=== PATIENT | male | born 1965 | race Two or more races ===

== ENCOUNTER 2017-11-16 11:51 | Inpatient (IN) | payer OTHER ==
[~2017-11-16] VITALS: Ht 172.7 cm; Wt 74.8 kg
[2017-11-16 11:56] VITALS: Ht 172.7 cm; Wt 74.8 kg
[2017-11-16 13:10] LABS: BASOPHIL % 0.4 % (0-2); PLATELET COUNT 315 x10^3mcL (130-400); RED CELL DISTRIBUTION WIDTH 13.6 % (11.5-14.5)
[2017-11-16 13:15] LABS: CALCIUM 8.3 mg/dL (8.5-10.1); CARBON DIOXIDE 23.4 mmol/L (21-32); CHLORIDE SERUM 98 mmol/L (98-107); GFR1 > 60 mL/min; GLUCOSE SERUM 109 mg/dL (74-106); POTASSIUM SERUM 3.6 mmol/L (3.5-5.1); SODIUM SERUM 133 mmol/L (136-145)
[2017-11-16 15:10] LABS: BASOPHIL % 0.2 % (0-2); PLATELET COUNT 305 x10^3mcL (130-400); RED CELL DISTRIBUTION WIDTH 13.1 % (11.5-14.5)
[2017-11-16 16:34] LABS: CHOLESTEROL/HDL RATIO 4.7; MAGNESIUM 1.9 mg/dL (1.8-2.4); PHOSPHOROUS 3.3 mg/dL (2.5-4.9)
[2017-11-16 17:20] VITALS: BP 144/84
[2017-11-16 18:17] LABS: UA SPECIFIC GRAVITY 1.015 (1.005-1.035); microscopic required? YES; urine erythrocyte NEGATIVE (NEGATIVE)
[2017-11-16 18:33] LABS: AMPHETAMINE QUAL UR NONE DETECTED (See below)
[2017-11-16 20:58] VITALS: BP 121/76
[2017-11-16 21:06] LABS: PLATELET COUNT 327 x10^3mcL (130-400); RED CELL DISTRIBUTION WIDTH 13.4 % (11.5-14.5)
[2017-11-16 21:34] LABS: BAND NEUTROPHIL 0 % (0-10); BASOPHIL 0 % (0-2); MONOCYTE 6 % (0-7); SEGMENTED NEUTROPHILS 80 % (37-75); rbc morphology (normal/abnorm) NORMAL (NORMAL)
[2017-11-17 05:26] VITALS: BP 101/58
[2017-11-17 06:56] LABS: BASOPHIL % 0.4 % (0-2); PLATELET COUNT 343 x10^3mcL (130-400); RED CELL DISTRIBUTION WIDTH 13.7 % (11.5-14.5)
[2017-11-17 07:16] LABS: CALCIUM 8.7 mg/dL (8.5-10.1); CARBON DIOXIDE 25.7 mmol/L (21-32); CHLORIDE SERUM 107 mmol/L (98-107); CREATININE SERUM 0.8 mg/dL (0.7-1.3); GFR1 > 60 mL/min; GLUCOSE SERUM 93 mg/dL (74-106); MAGNESIUM 2.3 mg/dL (1.8-2.4); PHOSPHOROUS 3.2 mg/dL (2.5-4.9); POTASSIUM SERUM 4.1 mmol/L (3.5-5.1); SODIUM SERUM 141 mmol/L (136-145)
[2017-11-17 09:51] VITALS: BP 104/60
[2017-11-17 17:38] VITALS: BP 105/71
[2017-11-17 20:42] VITALS: BP 111/65
[2017-11-18 05:58] VITALS: BP 98/62
[2017-11-18 06:22] LABS: BASOPHIL % 0.4 % (0-2); PLATELET COUNT 305 x10^3mcL (130-400); RED CELL DISTRIBUTION WIDTH 13.5 % (11.5-14.5)
[2017-11-18 06:25] LABS: CALCIUM 8.3 mg/dL (8.5-10.1); CARBON DIOXIDE 27.1 mmol/L (21-32); CHLORIDE SERUM 106 mmol/L (98-107); CREATININE SERUM 0.8 mg/dL (0.7-1.3); GFR1 > 60 mL/min; GLUCOSE SERUM 88 mg/dL (74-106); SODIUM SERUM 139 mmol/L (136-145)
[2017-11-18 09:20] VITALS: BP 109/72
[2017-11-18] MEDS ORDERED: PROTONIX40 MG/Pac1 PO (11:47)
[2017-11-18] MEDS ORDERED: FER300 PO (11:47)
[2017-11-18 12:30] VITALS: BP 121/68
[2017-11-18 16:10] VITALS: BP 121/68
[2017-11-18 16:58] VITALS: BP 118/72
== END 2017-11-18 17:09 | disposition short-term general hospital (02) | DRG 254 ==
LOC: ED → DU 15:39 → MU 11-18 11:53
PROVIDERS: Emergency Medicine; Internal Medicine; Internal Medicine Gastroenterology
PROC: 0DB68ZX Excision of Stomach, Via Natural or Artificial Opening Endoscopic, Diagnostic (ICD-10-PCS; principal; 2017-11-17 11:30)
PROC: 0DBP8ZX Excision of Rectum, Via Natural or Artificial Opening Endoscopic, Diagnostic (ICD-10-PCS; 2017-11-17 11:30)
DX: K62.9 Disease of anus and rectum, unspecified (principal); E87.1 Hypo-osmolality and hyponatremia; K62.1 Rectal polyp; K22.10 Ulcer of esophagus without bleeding; K22.2 Esophageal obstruction; K44.9 Diaphragmatic hernia without obstruction or gangrene; F20.9 Schizophrenia, unspecified; D50.0 Iron deficiency anemia secondary to blood loss (chronic); E86.0 Dehydration; D64.9 Anemia, unspecified; G89.29 Other chronic pain; M51.26 Other intervertebral disc displacement, lumbar region; Z87.891 Personal history of nicotine dependence; Z68.25 Body mass index [BMI] 25.0-25.9, adult; Z80.7 Family history of other malignant neoplasms of lymphoid, hematopoietic and related tissues
CPT/HCPCS: 43235; 45378; 83880; J1200; J1610; J2250; J2310; J3010; J3490; J7030; Q0092; Q9966; Q9967

== ENCOUNTER 2018-05-20 19:34 | Emergency (ER) | payer OTHER ==
[~2018-05-20] VITALS: Ht 172.7 cm; Wt 61.7 kg
[~2018-05-20 19:34] MED LIST: FER300 PO; PROTONIX40 MG/Pac1 PO
[2018-05-20 20:37] VITALS: BP 116/91; Ht 172.7 cm; Wt 61.7 kg
== END 2018-05-20 21:25 | disposition home or self-care (01) ==
LOC: ED 19:34
DX: G89.18 Other acute postprocedural pain (principal); K62.89 Other specified diseases of anus and rectum; Z48.00 Encounter for change or removal of nonsurgical wound dressing; Z85.038 Personal history of other malignant neoplasm of large intestine
CPT/HCPCS: J2270

== ENCOUNTER 2018-07-28 16:07 | Emergency (ER) | payer OTHER ==
[~2018-07-28] VITALS: Ht 172.7 cm; Wt 72.6 kg
[2018-07-28 16:12] VITALS: Ht 172.7 cm; Wt 72.6 kg
[2018-07-28 18:40] VITALS: BP 132/74
== END 2018-07-28 18:40 | disposition home or self-care (01) ==
LOC: ED 16:07
DX: Z43.3 Encounter for attention to colostomy (principal); R10.32 Left lower quadrant pain; Z85.038 Personal history of other malignant neoplasm of large intestine; Z88.8 Allergy status to other drugs, medicaments and biological substances; Z91.048 Other nonmedicinal substance allergy status
CPT/HCPCS: A4371

== ENCOUNTER 2018-11-11 14:22 | Emergency (ER) | payer OTHER ==
[~2018-11-11] VITALS: Ht 172.7 cm; Wt 75.8 kg
[2018-11-11 15:03] VITALS: Ht 172.7 cm; Wt 75.8 kg
[2018-11-11 18:22] VITALS: BP 123/79
== END 2018-11-11 18:22 | disposition home or self-care (01) ==
LOC: ED 14:22
DX: T81.31XA Disruption of external operation (surgical) wound, not elsewhere classified, initial encounter (principal); Z85.038 Personal history of other malignant neoplasm of large intestine; Z98.890 Other specified postprocedural states; Z88.8 Allergy status to other drugs, medicaments and biological substances

== ENCOUNTER 2019-02-07 18:49 | Emergency (ER) | payer OTHER ==
[~2019-02-07] VITALS: Ht 172.7 cm; Wt 78.0 kg
[2019-02-07 18:59] VITALS: Ht 172.7 cm; Wt 78.0 kg
[2019-02-07 20:50] VITALS: BP 126/85
== END 2019-02-07 20:50 | disposition home or self-care (01) ==
LOC: ED 18:49
DX: S80.02XA Contusion of left knee, initial encounter (principal); Z85.038 Personal history of other malignant neoplasm of large intestine; Z88.8 Allergy status to other drugs, medicaments and biological substances; Z91.09 Other allergy status, other than to drugs and biological substances; V22.0XXA Motorcycle driver injured in collision with two- or three-wheeled motor vehicle in nontraffic accident, initial encounter; Y93.55 Activity, bike riding; Y92.488 Other paved roadways as the place of occurrence of the external cause; Y99.8 Other external cause status

== ENCOUNTER 2019-04-19 17:42 | Emergency (ER) | payer OTHER ==
[~2019-04-19] VITALS: Ht 172.7 cm; Wt 78.9 kg
[2019-04-19 18:05] VITALS: Ht 172.7 cm; Wt 78.9 kg
[2019-04-19 19:44] VITALS: BP 122/73
== END 2019-04-19 19:44 | disposition home or self-care (01) ==
LOC: ED 17:42
DX: K29.70 Gastritis, unspecified, without bleeding (principal)
CPT/HCPCS: Q0162

== ENCOUNTER 2020-03-17 17:06 | Emergency (ER) | payer OTHER ==
[~2020-03-17] VITALS: Ht 172.7 cm; Wt 84.4 kg
[2020-03-17 20:15] VITALS: BP 130/68; Ht 172.7 cm; Wt 84.4 kg
== END 2020-03-17 20:38 | disposition home or self-care (01) ==
LOC: ED 17:06
DX: L84 Corns and callosities (principal); Z91.041 Radiographic dye allergy status; Z88.8 Allergy status to other drugs, medicaments and biological substances; Z98.890 Other specified postprocedural states